=== PATIENT | female | born 1950 | race Caucasian/White ===

== ENCOUNTER → 2017-07-24 | Outpatient (CLI) | payer MEDICARE ==
--- NOTE | 2017-07-27 11:50 | MM ---
Reason for exam: screening (asymptomatic). Last mammogram was performed 6 years and 8 months ago. History: Patient is postmenopausal. Family history of breast cancer in mother and breast cancer in paternal grandmother. Benign cyst aspiration of the right breast, June 24, 2004. Ultrasound-guided cyst aspiration of the right breast, June 24, 2004. Cyst aspiration of the right breast. Physical Findings: A clinical breast exam by your physician is recommended on an annual basis and results should be correlated with mammographic findings. MG 3D Screening Mammo W/Cad Bilateral CC and MLO view(s) were taken. Prior study comparison: June 17, 2016, mammogram, performed at [facility]. April 12, 2015, mammogram, performed at [facility]. December 02, 2010, bilateral digital screening mammo w/CAD. November 26, 2009, bilateral digital screening mammogram. The breast tissue is heterogeneously dense. This may lower the sensitivity of mammography. No suspicious abnormality. No significant changes when compared with prior studies. ASSESSMENT: Negative, BI-RAD 1 RECOMMENDATION: Routine screening mammogram of both breasts in 1 year.
== END | disposition home or self-care (01) ==
LOC: RADMAMWWP 09:55
PROVIDERS: ATTEND Obstetrics & Gynecology
DX: Z12.31 Encounter for screening mammogram for malignant neoplasm of breast (principal)
CPT/HCPCS: 77063; 77067

== ENCOUNTER → 2018-07-16 | Outpatient (CLI) | payer MEDICARE ==
[2018-07-16 16:34] LABS: Blood Urea Nitrogen 19 mg/dL (7-17)
--- NOTE | 2018-07-17 22:18 | MR ---
EXAMINATION TYPE: MR brain/orbits wo/w con DATE OF EXAM: 07/16/2018 COMPARISON: None HISTORY: Optic atrophy OS CONTRAST: Performed utilizing 7.5 mL intravenous Gadavist gadolinium contrast. TECHNIQUE: Multiplanar, multiecho imaging on a 3.0 Yessica magnet is performed through the brain. Stud y is performed within 24 hours of arrival to the hospital. The craniovertebral junction is normal. Diffusion-weighted imaging is performed. No abnormal hyperintensity is present to suggest an acute i ntracranial infarct or acute ischemic change. There is a suprasellar mass which is hyperintense on postcontrast imaging. This appears isointense on T2 with slight increased signal on FLAIR images. Enhancement pattern is slightly heterogenous. This appears to be extra-axial and has contact with the left and right internal carotid artery at the siph on. This covers less than one third of each superior carotid artery at the siphon. This is effacing t he optic chiasm and elevating the optic chiasm. This measures 2.2 cm transverse by 1.5 cm AP by 1.5 c m cranial caudal. Macroadenoma and meningioma or primary within the differential. Other etiologies ma y be less likely but should be correlated with CT examination to evaluate for calcification within th is structure. Craniopharyngioma should be considered. Ventricles and sulci are appropriate for the patient age. Small amount of fluid is within the left mastoid air cells. Correlate for mild left mastoiditis. Orbits: Globes are symmetrical. Superior ophthalmic veins are well visualized.. No intraconal and ext raconal abnormality is evident. 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 CT brain is recommended to further evaluate this mass for calcification. 2. Mild left mastoiditis. A Yellow level critical message alert has been initiated for Anuj Pulido MD via the [employer] Critical Results System on 07/17/2018 10:12 PM. This message alert has been sent to Anuj Pulido MD via the preferences provided by the clinician for the receipt of Radiology Critical Findings. [facility] ID [id number].
== END | disposition home or self-care (01) ==
LOC: RADMRIMAIN 15:52
PROVIDERS: ATTEND Ophthalmology
DX: H70.92 Unspecified mastoiditis, left ear (principal); G93.89 Other specified disorders of brain
CPT/HCPCS: 82565; 84520; 70543; 70553; 36415; A9585

== ENCOUNTER → 2018-07-26 | Outpatient (CLI) | payer MEDICARE ==
--- NOTE | 2018-08-01 09:44 | MM ---
Reason for exam: screening (asymptomatic). Last mammogram was performed 1 year ago. History: Patient is postmenopausal. Family history of breast cancer in mother and breast cancer in paternal grandmother. Benign cyst aspiration of the right breast, June 24, 2004. Ultrasound-guided cyst aspiration of the right breast, June 24, 2004. Cyst aspiration of the right breast. MG 3D Screening Mammo W/Cad Bilateral CC and MLO view(s) were taken. Prior study comparison: July 24, 2017, bilateral MG 3d screening mammo w/cad. June 17, 2016, mammogram, performed at [facility]. The breast tissue is heterogeneously dense. This may lower the sensitivity of mammography. Cronic nodularity right breast. No significant new findings when compared with prior studies. ASSESSMENT: Negative, BI-RAD 1 RECOMMENDATION: Routine screening mammogram of both breasts in 1 year.
== END | disposition home or self-care (01) ==
LOC: RADMAMWWP 11:05
PROVIDERS: ATTEND Obstetrics & Gynecology
DX: Z12.31 Encounter for screening mammogram for malignant neoplasm of breast (principal); Z80.3 Family history of malignant neoplasm of breast
CPT/HCPCS: 77063; 77067

== ENCOUNTER → 2020-01-27 | Outpatient (CLI) | payer MEDICARE ==
--- NOTE | 2020-01-27 15:39 | BD ---
EXAMINATION TYPE: Axial Bone Density DATE OF EXAM: 01/27/2020 COMPARISON: 12/02/2010 CLINICAL HISTORY: Height: 65.5 IN Weight: 172 LBS FRAX RISK QUESTIONS: RISK FACTORS HISTORY OF: Active: YES Diet low in dairy products/other sources of calcium: YES Postmenopausal woman: AGE 51 MEDICATIONS: Additional Medications: CALCIUM, VIT D, TYLENOL, MAGNESIUM, EXAM MEASUREMENTS: Bone mineral densitometry was performed using the [employer] System. Bone mineral density as measured about the Lumbar spine is: ----- L1-L4(G/cm2): 1.096 T Score Values are as follows: ----- L2: -1.4 ----- L3: -0.7 ----- L4: 0.6 ----- L1-L4: -0.7 Bone mineral density has: Increased 7.2% since study of: 12/02/2010 Bone mineral density about the R hip (g/cm2): 0.762 Bone mineral density about the L hip (g/cm2): 0.724 T Score values are as follows: -----R Neck: -2.0 -----L Neck: -2.3 -----R Total: -1.7 -----L Total: -2.5 Bone mineral density has: Decreased -14.5% since study of: 12/02/2010 IMPRESSION: Osteoporosis left hip. NOTE: T-SCORE=SD OF THE YOUNG ADULT MEAN.
--- NOTE | 2020-01-30 10:19 | MM ---
Reason for exam: screening (asymptomatic). Last mammogram was performed 1 year and 6 months ago. History: Patient is postmenopausal. Family history of breast cancer in mother and breast cancer in paternal grandmother. Benign cyst aspiration of the right breast, June 24, 2004. Ultrasound-guided cyst aspiration of the right breast, June 24, 2004. Cyst aspiration of the right breast. Physical Findings: A clinical breast exam by your physician is recommended on an annual basis and results should be correlated with mammographic findings. MG 3D Screening Mammo W/Cad Bilateral CC and MLO view(s) were taken. Prior study comparison: July 26, 2018, bilateral MG 3d screening mammo w/cad. July 24, 2017, bilateral MG 3d screening mammo w/cad. The breast tissue is heterogeneously dense. This may lower the sensitivity of mammography. No significant changes when compared with prior studies. ASSESSMENT: Benign, BI-RAD 2 RECOMMENDATION: Routine screening mammogram of both breasts in 1 year.
== END | disposition home or self-care (01) ==
LOC: RADBDWWP 14:45
PROVIDERS: ATTEND Obstetrics & Gynecology
DX: M81.0 Age-related osteoporosis without current pathological fracture (principal); Z12.31 Encounter for screening mammogram for malignant neoplasm of breast; Z80.3 Family history of malignant neoplasm of breast
CPT/HCPCS: 77063; 77067; 77080

== ENCOUNTER → 2021-01-28 | Outpatient (CLI) | payer MEDICARE ==
--- NOTE | 2021-01-30 08:33 | MM ---
Reason for exam: screening (asymptomatic). Last mammogram was performed 1 year ago. History: Patient is postmenopausal. Family history of breast cancer in mother and breast cancer in paternal grandmother. Benign cyst aspiration of the right breast, June 24, 2004. Ultrasound-guided cyst aspiration of the right breast, June 24, 2004. Cyst aspiration of the right breast. Physical Findings: A clinical breast exam by your physician is recommended on an annual basis and results should be correlated with mammographic findings. MG 3D Screening Mammo W/Cad Bilateral CC and MLO view(s) were taken. Prior study comparison: January 27, 2020, bilateral MG 3d screening mammo w/cad. July 26, 2018, bilateral MG 3d screening mammo w/cad. The breast tissue is heterogeneously dense. This may lower the sensitivity of mammography. No significant changes when compared with prior studies. ASSESSMENT: Benign, BI-RAD 2 RECOMMENDATION: Routine screening mammogram of both breasts in 1 year.
== END | disposition home or self-care (01) ==
LOC: RADMAMWWP 14:01
PROVIDERS: ATTEND Obstetrics & Gynecology
DX: Z12.31 Encounter for screening mammogram for malignant neoplasm of breast (principal); Z78.0 Asymptomatic menopausal state; Z80.3 Family history of malignant neoplasm of breast
CPT/HCPCS: 77063; 77067

== ENCOUNTER → 2022-01-29 | Outpatient (CLI) | payer MEDICARE ==
--- NOTE | 2022-01-31 07:27 | MM ---
Reason for Exam: Screening (asymptomatic). Last screening mammogram was performed 12 month(s) ago. Patient History: Menarche at age 13. First Full-Term at age 19. Postmenopausal. Cyst Aspiration on the Right side. 06/24/2004, Benign Cyst Aspiration on the right side. 06/24/2004, Ultrasound-Guided Cyst Aspiration on the Right side. Paternal grandmother had breast cancer. Mother had breast cancer. Risk Values: Edwige 5 year model risk: 3.2%. NCI Lifetime model risk: 9.2%. Prior Study Comparison: 07/26/2018 Bilateral Screening Mammogram, [facility]. 01/27/2020 Bilateral Screening Mammogram, [facility]. 01/28/2021 Bilateral Screening Mammogram, [facility]. Tissue Density: The breast tissue is heterogeneously dense. This may lower the sensitivity of mammography. Findings: Analyzed By CAD. There is no suspicious group of microcalcifications or new suspicious mass in either breast. No significant change from prior examination. Overall Assessment: Negative, BI-RAD 1 Management: Screening Mammogram of both breasts in 1 year. A clinical breast exam by your physician is recommended on an annual basis and results should be correlated with mammographic findings. Electronically signed and approved by: Mason Boo D.O.
== END | disposition home or self-care (01) ==
LOC: RADMAMWWP 13:00
PROVIDERS: ATTEND Obstetrics & Gynecology
DX: Z12.31 Encounter for screening mammogram for malignant neoplasm of breast (principal); Z78.0 Asymptomatic menopausal state; Z80.3 Family history of malignant neoplasm of breast
CPT/HCPCS: 77063; 77067

== ENCOUNTER → 2022-05-09 | Outpatient (CLI) | payer MEDICARE ==
[2022-05-09 14:49] LABS: African American GFR (CKD) >90 (>60 ml/min/1.73 sqM); Blood Urea Nitrogen 16 mg/dL (7-17); Non-African American GFR(CKD) >90 (>60 ml/min/1.73 sqM)
--- NOTE | 2022-05-11 08:22 | CT ---
EXAMINATION TYPE: CT urogram wo/w con DATE OF EXAM: 05/09/2022 HISTORY: Gross hematuria CT DLP: 2096.3mGycm Automated Exposure Control for Dose Reduction was Utilized. CONTRAST: CT scan of the abdomen and pelvis is performed without oral and without and with IV Contrast, patient injected with 100cc mL of Isovue 370. Urogram protocol with 3-D reconstructed images created on an [employer] workstation and reviewed. COMPARISON: CT abdomen and pelvis January 19, 2012 FINDINGS: KUB: Noncontrast images show 8 mm calculus lower pole right kidney coronal image 80. No left-sided ne phrolithiasis. Postcontrast images show symmetric cortical injury uptake with mild to moderate right- sided hydronephrosis. There are 2 simple-appearing thin-walled cysts in the left kidney measuring up to 2.7 cm in size. One cyst has dependent calcium or milk of calcium axial image 52 series 8 and is p artially exophytic. There is subcentimeter thin-walled cyst right kidney coronal image 93 series 18. Areas of asymmetric mild right-sided hydroureter without obstructing mass or calculus are identified. Urinary bladder shows no intraluminal calculi or suspicious mass. LUNG BASES: No significant abnormality is appreciated. LIVER/GB: No significant abnormality is appreciated. PANCREAS: No significant abnormality is seen. SPLEEN: No significant abnormality is seen. ADRENALS: No significant abnormality is seen. BOWEL: Some diverticula in the distal left and sigmoid colon. No CT evidence for acute diverticulitis . No suspicious small or large bowel dilatation. Normal appearing appendix from the cecum. Distal sma ll bowel feces sign suggesting delayed passage of ingested material to colonic level. There is no debbie picious small bowel dilatation. UTERUS/ADNEXA: Anteverted uterus with 1.8 cm calcified fundal fibroid. LYMPH NODES: No greater than 1cm abdominal or pelvic lymph nodes are appreciated. OSSEOUS STRUCTURES: Prominent Tarlov cyst right greater than left S2 level axial image 60. Slight sco liotic curvature in the lower lumbar spine. Alignment is straight and sagittal images. Moderate disc space narrowing with vacuum disc phenomenon along with spurring and sclerosis right L4-L5 level. Face t arthropathy lower lumbar levels. OTHER: Small to moderate-sized umbilical hernia containing fat and tiny mesenteric vessels. IMPRESSION: Nonobstructing 8 mm right renal calculus. Mild to moderate right-sided hydronephrosis wit hout obstructing mass or calculus and no delayed excretion.
== END | disposition home or self-care (01) ==
LOC: RADCTMAIN 14:08
PROVIDERS: ATTEND Urology
DX: N13.2 Hydronephrosis with renal and ureteral calculous obstruction (principal)
CPT/HCPCS: 82565; 84520; 74178; 36415; 74400; Q9967

== ENCOUNTER → 2023-02-13 | Outpatient (CLI) | payer MEDICARE ==
--- NOTE | 2023-02-13 14:50 | BD ---
EXAMINATION TYPE: Axial Bone Density DATE OF EXAM: 02/13/2023 CLINICAL HISTORY: 72 years old Female. ICD-10 CODE: M85.88 OT DISRD OF BONE DENSITY Height: 65.25 Weight: 173 FRAX RISK QUESTIONS: Family History (Parent hip fracture): no History of Fracture in Adulthood: no Secondary Osteoporosis: no Rheumatoid Arthritis: no RISK FACTORS HISTORY OF: Family History of Osteoporosis: no Active: yes Diet low in dairy products/other sources of calcium: no Postmenopausal woman: yes, age 51 Lost more than 2 inches in height since high school: no Frequent falls: yes Poor Health: no MEDICATIONS: Additional Medications: no EXAM MEASUREMENTS: Bone mineral densitometry was performed using the [employer] System. Bone mineral density as measured about the Lumbar spine is: ----- L1-L4(G/cm2): 1.130 T Score Values are as follows: ----- L1: -1.7 ----- L2: -0.2 ----- L3: -0.7 ----- L4: 0.7 ----- L1-L4: -0.4 Z Score Values are as follows: ----- L1: -0.5 ----- L2: 1.1 ----- L3: 0.5 ----- L4: 1.9 ----- L1-L4: 0.8 Bone mineral density has: Increased 3.1% since study of: 01/27/2020 Bone mineral density about the R hip (g/cm2): 0.772 Bone mineral density about the L hip (g/cm2): 0.687 T Score values are as follows: -----R Neck: -2.6 -----L Neck: -2.6 -----R Total: -1.9 -----L Total: -2.5 Z Score values are as follows: -----R Neck: -1.2 -----L Neck: -1.1 -----R Total: -0.7 -----L Total: -1.3 Bone mineral density has: Decreased -2.3% since study of: 01/27/2020 FRAX%s: The graph provided illustrates a 16.0% chance for a major osteoporotic fx and a 4.5% chance f or the hips probability for fx in 10 years time. IMPRESSION: Osteopenia (T Score between -2.5 and -1). There is slightly increased risk of fracture and the patient may be considered for treatment. Re-Screen 2-5 years. NOTE: T-SCORE=SD OF THE YOUNG ADULT MEAN.
--- NOTE | 2023-02-16 15:15 | MM ---
Reason for Exam: Screening (asymptomatic). Last screening mammogram was performed 12 month(s) ago. Patient History: Menarche at age 13. First Full-Term at age 19. Postmenopausal. Cyst Aspiration on the Right side. 06/24/2004, Benign Cyst Aspiration on the right side. 06/24/2004, Ultrasound-Guided Cyst Aspiration on the Right side. Paternal grandmother had breast cancer. Mother had breast cancer. Risk Values: Edwige 5 year model risk: 3.2%. NCI Lifetime model risk: 8.8%. Prior Study Comparison: 01/27/2020 Bilateral Screening Mammogram, [facility]. 01/28/2021 Bilateral Screening Mammogram, [facility]. 01/29/2022 Bilateral MG 3D screening mammo w/cad, [facility]. Tissue Density: The breast tissue is heterogeneously dense. This may lower the sensitivity of mammography. Findings: Analyzed By CAD. Pattern appears symmetrical and stable. Chronic nodularity is within the right breast. Benign spherical and punctate calcifications are within the left breast. No significant interval change is evident. No suspicious groups of microcalcifications, spiculated or lobular masses, architectural distortion or other secondary signs of malignancy are mammographically apparent. Overall Assessment: Benign, BI-RAD 2 Management: Screening Mammogram of both breasts in 1 year. A negative mammogram report should not preclude additional follow up of suspicious palpable abnormalities. Patient should continue monthly self breast exam. A clinical breast exam by your physician is recommended on an annual basis and results should be correlated with mammographic findings. Electronically signed and approved by: Anuj Manning D.O. Radiologis
== END | disposition home or self-care (01) ==
LOC: RADBDWWP 13:09
PROVIDERS: ATTEND Obstetrics & Gynecology
DX: Z12.31 Encounter for screening mammogram for malignant neoplasm of breast (principal); M81.0 Age-related osteoporosis without current pathological fracture; M85.89 Other specified disorders of bone density and structure, multiple sites; Z78.0 Asymptomatic menopausal state; Z80.3 Family history of malignant neoplasm of breast
CPT/HCPCS: 77063; 77067; 77080

== ENCOUNTER 2024-10-18 11:04 | Emergency (ER) | payer MEDICARE ==
[2024-10-18 11:16] VITALS: BP 125/77; PULSE 69; RESP 20; TEMP 98.1
--- NOTE | 2024-10-18 11:51 | ED ---
Abdominal Pain HPI - General Chief Complaint: Abdominal Pain Stated Complaint: abd pain Time Seen by Provider: 10/18/24 11:48 Source: patient, RN notes reviewed, old records reviewed Mode of arrival: ambulatory Limitations: no limitations - History of Present Illness Initial Comments: Patient is a 73-year-old female with a past medical history significant of hypertension presenting to the ER for evaluation of right upper quadrant abdominal pain. Patient reports for the past week she has been endorsing a right upper quadrant cramping abdominal discomfort. She does report mild radiation to her right flank. Patient does report pain is worse at night inhibiting her sleep. At rest and during the pain day pain is 3/4 out of 10. She states over the past couple of nights pain has been gradually worsening. She denies any nausea, vomiting, diarrhea or urinary complaints. Patient was seen at urgent care prior to arrival and was instructed to come to the emergency department for further evaluation and treatment. Patient denies any recent fevers or chills. No history of bowel resections or abdominal surgeries. Patient has not taken anything for her symptoms at this time. No other complaints. - Related Data Home Medications Medication Instructions Recorded Confirmed Losartan-Hctz 50-12.5 mg [Hyzaar 1 tab PO DAILY 10/18/24 10/18/24 50-12.5] Rosuvastatin [Crestor] 20 mg PO HS 10/18/24 10/18/24 Allergies Allergy/AdvReac Type Severity Reaction Status Date / Time Penicillins Allergy Swelling/Hi Verified 10/18/24 12:00 ves Sulfa (Sulfonamide Allergy Rash/Hives Verified 10/18/24 12:00 Antibiotics) Review of Systems ROS Statement: Those systems with pertinent positive or pertinent negative responses have been documented in the HPI. ROS Other: All systems not noted in ROS Statement are negative. Past Medical History Past Medical History: Hypertension History of Any Multi-Drug Resistant Organisms: None Reported Past Surgical History: Section, Orthopedic Surgery Additional Past Surgical History / Comment(s): cyst removal, brain surgery Past Psychological History: No Psychological Hx Reported Smoking Status: Never smoker Past Alcohol Use History: Occasional Past Drug Use History: None Reported General Exam Limitations: no limitations General appearance: alert, in no apparent distress Respiratory exam: Present: normal lung sounds bilaterally. Absent: respiratory distress, wheezes, rales, rhonchi, stridor Cardiovascular Exam: Present: regular rate, normal rhythm, normal heart sounds. Absent: systolic murmur, diastolic murmur, rubs, gallop, clicks GI/Abdominal exam: Present: soft, normal bowel sounds. Absent: distended, tenderness, guarding, rebound, rigid Neurological exam: Present: alert, oriented X3, CN II-XII intact Skin exam: Present: warm, dry, intact, normal color. Absent: rash Course Vital Signs 10/18/24 11:12 Temperature 98.1 F Pulse Rate 69 Respiratory 20 Rate Blood Pressure 125/77 O2 Sat by Pulse 96 Oximetry Medical Decision Making - Medical Decision Making Was pt. sent in by a medical professional or institution (, PA, COMMUNICATIONS PROJECT LEAD, urgent care, hospital, or detention...) When possible be specific @ -No Did you speak to anyone other than the patient for history (EMS, parent, family, police, friend...)? What history was obtained from this source @ -No Did you review nursing and triage notes (agree or disagree)? Why? @ -I reviewed and agree with nursing and triage notes Were old charts reviewed (outside hosp., previous admission, EMS record, old EKG, old radiological studies, urgent care reports/EKG's, detention records)? Report findings @ -No old charts were reviewed Differential Diagnosis (chest pain, altered mental status, abdominal pain women, abdominal pain men, vaginal bleeding, weakness, fever, dyspnea, syncope, headache, dizziness, GI bleed, back pain, seizure, CVA, palpatations, mental health, musculoskeletal)? @ -Differential Abdominal Pain Women: Appendicitis, Cholecystitis, diverticulosis, ischemic bowel, pancreatitis, hepatitis, UTI, gastroenteritis, AAA, incarcerated hernia, bowel obstruction, constipation, inflammatory bowel, hepatitis, peptic ulcer disease, splenic infarction, perforated viscus, vulvitis, ovarian torsion, PID, kidney stone, placenta abruption, this is not meant to be an all-inclusive list EKG interpreted by me (3pts min.). @ -As above X-rays interpreted by me (1pt min.). @ -None done CT interpreted by me (1pt min.). @ -CT abdomen pelvis showing stable right-sided hydronephrosis with nonobstructing 7.8 mm right renal calculus. Stable calcified uterine fibroid. No significant changes from 04/2022. U/S interpreted by me (1pt. min.). @ -Gallbladder ultrasound showed a contracted gallbladder no cholelithiasis. Common bile duct measuring 0.7 cm. There is suspected nonobstructing right-sided renal calculi and mild to moderate right-sided hydronephrosis. What testing was considered but not performed or refused? (CT, X-rays, U/S, labs)? Why? @ -None What meds were considered but not given or refused? Why? @ -None Did you discuss the management of the patient with other professionals ( professionals i.e. , PA, COMMUNICATIONS PROJECT LEAD, lab, RT, psych nurse, manager social services, rim turning finisher, teacher, environmental compliance officer, trimming caser)? Give summary @ -No Was smoking cessation discussed for >3mins.? @ -No Was critical care preformed (if so, how long)? @ -No Were there social determinants of health that impacted care today? How? (Homelessness, low income, unemployed, alcoholism, drug addiction, transportation, low edu. Level, literacy, decrease access to med. care, longterm, rehab)? @ -No Was there de-escalation of care discussed even if they declined (Discuss DNR or withdrawal of care, Hospice)? DNR status @ -No What co-morbidities impacted this encounter? (DM, HTN, Smoking, COPD, CAD, Cancer, CVA, ARF, Chemo, Hep., AIDS, mental health diagnosis, sleep apnea, morbid obesity)? @ -None Was patient admitted / discharged? Hospital course, mention meds given and route, prescriptions, significant lab abnormalities, going to OR and other pertinent info. @ -Discharge. 73-year-old female presented the ER for evaluation of right upper quadrant abdominal pain. Upon rooming, history and physical exam completed. Vitals within acceptable limits. Patient in no signs of distress nontoxic-appearing. There is no focal abdominal tenderness to palpation with normal bowel sounds without rebound or guarding. Laboratory studies and gallbladder ultrasound were initially obtained along with symptom control, patient is agreeable. Laboratory studies obtained unimpressive. No significant LFT elevation. Total bilirubin 1.6, AST 36, ALT 36, alk phos 81. Amylase and lipase within normal limits. No significant electrolyte abnormality. Urinalysis with no evidence of infection or hematuria. Gallbladder ultrasound initially obtained showing no cholelithiasis. Common bile duct dilated 0.7 cm. Right s ided hydronephrosis present for which CT abdomen pelvis was obtained showing stable right-sided hydronephrosis with no obstructing ureteral calculus. Nonobstructing 7.8 mm right renal calculus noted. Patient received symptomatic control in the emergency department with IV fluids and Toradol. Upon reevaluation, patient resting comfortably on stretcher no signs of acute distress. Laboratory studies and imaging findings discussed with patient, all questions answered. Abdominal discomfort possibly biliary colic, I informed patient a HIDA scan may be indicated if symptoms persist. I advised close follow-up with PCP and general surgery, referral given. Patient reports she is scheduled to follow-up with Dr. Ruby. Patient is stable for discharge at this time. Strict return parameters discussed. I advised [id number] ibuprofen and Tylenol for pain control outpatient. Patient verbally expressed understanding and agreement with care plan. Case discussed with ED attending, Dr. Dejesus. Undiagnosed new problem with uncertain prognosis? @ -No Drug Therapy requiring intensive monitoring for toxicity (Heparin, Nitro, Insulin, Cardizem)? @ -No Were any procedures done? @ -No Diagnosis/symptom? @ -Abdominal pain/ Right hydronephrosis Acute, or Chronic, or Acute on Chronic? @ -Acute/chronic Uncomplicated (without systemic symptoms) or Complicated (systemic symptoms)? @ -Uncomplicated Side effects of treatment? @ -No Exacerbation, Progression, or Severe Exacerbation? @ -No Poses a threat to life or bodily function? How? (Chest pain, USA, PR, pneumonia, PE, COPD, DKA, ARF, appy, cholecystitis, CVA, Diverticulitis, Homicidal, Suicidal, threat to staff... and all critical care pts) @ -No - Lab Data Result diagrams: 10/18/24 11:57 10/18/24 11:57 Lab Results 10/18/24 10/18/24 10/18/24 Range/Units 11:57 11:57 11:57 WBC 8.8 (3.8-10.6) k/uL RBC 5.43 H (3.80-5.40) m/uL Hgb 15.3 (11.4-16.0) gm/dL Hct 47.5 H (34.0-46.0) % MCV 87.5 (80.0-100.0) fL MCH 28.2 (25.0-35.0) pg MCHC 32.3 (31.0-37.0) g/dL RDW 13.1 (11.5-15.5) % Plt Count 326 (150-450) k/uL MPV 7.2 Neutrophils % 64 % Lymphocytes % 27 % Monocytes % 6 % Eosinophils % 1 % Basophils % 0 % Neutrophils # 5.6 (1.3-7.7) k/uL Lymphocytes # 2.4 (1.0-4.8) k/uL Monocytes # 0.5 (0-1.0) k/uL Eosinophils # 0.1 (0-0.7) k/uL Basophils # 0.0 (0-0.2) k/uL Sodium 139 (137-145) mmol/L Potassium 4.5 (3.5-5.1) mmol/L Chloride 101 (98-107) mmol/L Carbon Dioxide 27 (22-30) mmol/L Anion Gap 11 mmol/L BUN 22 H (7-17) mg/dL Creatinine 0.58 (0.52-1.04) mg/dL Est GFR (CKD-EPI)AfAm >90 (>60 ml/min/1.73 sqM) Est GFR (CKD-EPI)NonAf >90 (>60 ml/min/1.73 sqM) Glucose 98 (74-99) mg/dL Plasma Lactic Acid Ken (0.7-2.0) mmol/L Calcium 10.0 (8.4-10.2) mg/dL Total Bilirubin 1.6 H (0.2-1.3) mg/dL AST 36 (14-36) U/L ALT 36 H (4-34) U/L Alkaline Phosphatase 81 (38-126) U/L Total Protein 7.7 (6.3-8.2) g/dL Albumin 4.8 (3.5-5.0) g/dL Amylase 66 (30-110) U/L Lipase 106 (23-300) U/L Urine Color Colorless Urine Appearance Clear (Clear) Urine pH 7.0 (5.0-8.0) Ur Specific Casey 1.008 (1.001-1.035) Urine Protein Negative (Negative) Urine Glucose (UA) Negative (Negative) Urine Ketones Negative (Negative) Urine Blood Negative (Negative) Urine Nitrite Negative (Negative) Urine Bilirubin Negative (Negative) Urine Urobilinogen <2.0 (<2.0) mg/dL Ur Leukocyte Esterase Moderate H (Negative) Urine RBC 4 (0-5) /hpf Urine WBC 2 (0-5) /hpf Ur Squamous Epith Cells 2 (0-4) /hpf Urine Bacteria Rare H (None) /hpf Urine Mucus Rare H (None) /hpf 10/18/24 Range/Units 12:06 WBC (3.8-10.6) k/uL RBC (3.80-5.40) m/uL Hgb (11.4-16.0) gm/dL Hct (34.0-46.0) % MCV (80.0-100.0) fL MCH (25.0-35.0) pg MCHC (31.0-37.0) g/dL RDW (11.5-15.5) % Plt Count (150-450) k/uL MPV Neutrophils % % Lymphocytes % % Monocytes % % Eosinophils % % Basophils % % Neutrophils # (1.3-7.7) k/uL Lymphocytes # (1.0-4.8) k/uL Monocytes # (0-1.0) k/uL Eosinophils # (0-0.7) k/uL Basophils # (0-0.2) k/uL Sodium (137-145) mmol/L Potassium (3.5-5.1) mmol/L Chloride (98-107) mmol/L Carbon Dioxide (22-30) mmol/L Anion Gap mmol/L BUN (7-17) mg/dL Creatinine (0.52-1.04) mg/dL Est GFR (CKD-EPI)AfAm (>60 ml/min/1.73 sqM) Est GFR (CKD-EPI)NonAf (>60 ml/min/1.73 sqM) Glucose (74-99) mg/dL Plasma Lactic Acid Ken 0.9 (0.7-2.0) mmol/L Calcium (8.4-10.2) mg/dL Total Bilirubin (0.2-1.3) mg/dL AST (14-36) U/L ALT (4-34) U/L Alkaline Phosphatase (38-126) U/L Total Protein (6.3-8.2) g/dL Albumin (3.5-5.0) g/dL Amylase (30-110) U/L Lipase (23-300) U/L Urine Color Urine Appearance (Clear) Urine pH (5.0-8.0) Ur Specific Casey (1.001-1.035) Urine Protein (Negative) Urine Glucose (UA) (Negative) Urine Ketones (Negative) Urine Blood (Negative) Urine Nitrite (Negative) Urine Bilirubin (Negative) Urine Urobilinogen (<2.0) mg/dL Ur Leukocyte Esterase (Negative) Urine RBC (0-5) /hpf Urine WBC (0-5) /hpf Ur Squamous Epith Cells (0-4) /hpf Urine Bacteria (None) /hpf Urine Mucus (None) /hpf - Radiology Data Radiology results: report reviewed, image reviewed Disposition Clinical Impression: Abdominal pain Disposition: HOME SELF-CARE Condition: Stable Instructions (If sedation given, give patient instructions): Abdominal Pain (ED) Additional Instructions: Follow-up closely with PCP. Return to the ER for any new or worsening concerns. Is patient prescribed a controlled substance at d/c from ED?: No Referrals: Paul Lopez MD [Primary Care Provider] - 1-2 days Anthony Ruby MD [Medical Doctor] - 1-2 days Time of Disposition: 14:33
[2024-10-18 12:15] LABS: Basophils % (A) 0 %; Eosinophils # (A) 0.1 k/uL (0-0.7); Eosinophils % (A) 1 %; HCT 47.5 % (34.0-46.0); HGB 15.3 gm/dL (11.4-16.0); Lymphocytes # (A) 2.4 k/uL (1.0-4.8); Lymphocytes % (A) 27 %; MCH 28.2 pg (25.0-35.0); MCHC 32.3 g/dL (31.0-37.0); MCV 87.5 fL (80.0-100.0); Mean Platelet Volume 7.2; Monocytes # (A) 0.5 k/uL (0-1.0); Monocytes % (A) 6 %; Neutrophils # (A) 5.6 k/uL (1.3-7.7); Neutrophils % (A) 64 %; Platelet Count 326 k/uL (150-450); RBC 5.43 m/uL (3.80-5.40); RDW 13.1 % (11.5-15.5); WBC 8.8 k/uL (3.8-10.6)
[2024-10-18] MEDS: SODIUM CHLORIDE 0.9% 1,000 ML IV ONE (12:17)
[2024-10-18] MEDS: KETOROLAC 15 MG/ML 1 ML VIAL IVP STA (12:17)
[2024-10-18 12:24] LABS: ALT 36 U/L (4-34); AST 36 U/L (14-36); African American GFR (CKD) >90 (>60 ml/min/1.73 sqM); Albumin 4.8 g/dL (3.5-5.0); Alkaline Phosphatase 81 U/L (38-126); Amylase 66 U/L (30-110); Anion Gap 11 mmol/L; Blood Urea Nitrogen 22 mg/dL (7-17); Carbon Dioxide 27 mmol/L (22-30); Chloride 101 mmol/L (98-107); Glucose 98 mg/dL (74-99); Lipase 106 U/L (23-300); Non-African American GFR(CKD) >90 (>60 ml/min/1.73 sqM); Potassium 4.5 mmol/L (3.5-5.1); Sodium 139 mmol/L (137-145); Total Bilirubin 1.6 mg/dL (0.2-1.3); Total Protein 7.7 g/dL (6.3-8.2)
--- NOTE | 2024-10-18 12:54 | US ---
EXAMINATION TYPE: US gallbladder DATE OF EXAM: 10/18/2024 COMPARISON: CT 2011 CLINICAL INDICATION: Female, 73 years old with history of RUQ abd pain; Pain x 4-5 days TECHNIQUE: Grayscale and color Doppler imaging of the right upper quadrant was performed. FINDINGS: EXAM MEASUREMENTS: Liver Length: 15.1 cm Gallbladder Wall: 0.2 cm CBD: 0.7 cm Right Kidney: 11.4 x 4.8 x 5.0 cm SAS SQL DEVELOPER NOTES: Study limited due to bowel gas. Pancreas: Appears wnl, tail obscured Liver: Appears wnl, slightly hyperechoic. Slightly limited, most images taken intercostally. Gallbladder: Appears contracted limiting evaluation Evidence for sonographic Coronado's sign: No CBD: Dilated Right Kidney: Hydronephrosis seen. Two echogenic foci noted, the largest at mid measuring 0.8 x 1.0 x 0.5 cm Heterogeneous hyperechoic appearance of liver. Evaluation for focal masses suboptimal due to the hete rogeneity. IMPRESSION: Suspect nonobstructing right-sided renal calculi and mild to moderate right-sided hydrone phrosis. Consider obstructing right ureter calculus. Correlate clinically. [facility], , 10/18/2024 12:52 PM
[2024-10-18 13:03] LABS: Appearance,Urine Clear (Clear); Bacteria,Urine Rare /hpf; Bilirubin,Urine Negative (Negative); Blood,Urine Negative (Negative); Color,Urine Colorless; Glucose,Urine (UA) Negative (Negative); Ketones,Urine Negative (Negative); Leukocyte Esterase,Urine Moderate (Negative); Mucus,Urine Rare /hpf; Nitrite,Urine Negative (Negative); Protein,Urine Negative (Negative); RBC,Urine 4 /hpf (0-5); Specific Gravity,Urine 1.008 (1.001-1.035); Squamous Epithelial Cell,Urine 2 /hpf (0-4); Urobilinogen,Urine <2.0 mg/dL (<2.0); WBC,Urine 2 /hpf (0-5)
--- NOTE | 2024-10-18 14:10 | CT ---
EXAMINATION TYPE: CT abdomen pelvis wo con DATE OF EXAM: 10/18/2024 COMPARISON: 05/09/2022 CLINICAL INDICATION: Female, 73 years old with history of RUQ abd pain; PHH, RUQ abd pain TECHNIQUE: CT scan of the abdomen and pelvis is performed without oral or IV contrast. CT DLP: 543.[address] CTDI: mGy Automated exposure control for dose reduction was used. Findings: The lungs are clear. Gallbladder is normal and there is no gallstone, wall thickening, pericholecystic fluid or distention . There is no biliary ductal dilatation. There is no organomegaly of the liver, pancreas, spleen or adrenal glands. There is a suggestion of stable mild right hydronephrosis. There is a 7.8 mm nonobstructing right shanthi al calcification. There is a stable 1.5 partially exophytic cyst at the lateral left kidney with a fo sunshine calcification. There are no new renal masses. The caliber of the abdominal aorta is normal and th ere is no retroperitoneal adenopathy or hemorrhage. The bowel loops are normal in caliber is no evidence of obstruction. No inflammatory changes are iden tified in the mesentery and there is no free intraperitoneal air or fluid. There is a 2.2 cm calcified uterine fibroid in the right aspect of the 9 mm calcification in the aden on of the left adnexa.. The osseous structures and soft tissues are unremarkable. IMPRESSION: 1. Stable mild right hydronephrosis with a nonobstructing 7.8 mm right renal calculus. 2. Stable calcified uterine fibroid 3. No significant changes compared to the prior study dated 05/09/2022 [facility], , 10/18/2024 2:07 PM
== END 2024-10-18 15:01 | disposition home or self-care (01) ==
LOC: EC 11:04
DX: R10.11 Right upper quadrant pain (principal); I10 Essential (primary) hypertension; N13.2 Hydronephrosis with renal and ureteral calculous obstruction; Z88.0 Allergy status to penicillin; Z88.2 Allergy status to sulfonamides
CPT/HCPCS: 36415; 80053; 82150; 83605; 83690; 85025; 81001; 76705; 74176; 99284; 96374; 96361; J1885